=== PATIENT | female | born 1960 | race American Indian/Alaskan Native ===

== ENCOUNTER → 2017-03-14 | Outpatient (CLI) | payer MEDICARE, OTHER ==
[~2017-03-14] MED LIST: GADOBUTROL 7.5 MMOL/7.5 ML VIAL ONE
== END | disposition home or self-care (01) ==
LOC: CFH 14:21
PROVIDERS: ATTEND Radiology Radiation Oncology
DX: D33.3 Benign neoplasm of cranial nerves (principal)
CPT/HCPCS: 70553; A9585

== ENCOUNTER → 2017-03-21 | Outpatient (CLI) | payer MEDICARE, OTHER | END | disposition home or self-care (01) | LOC: ROC 10:36 | PROVIDERS: ATTEND Radiology Radiation Oncology | DX: D33.3 Benign neoplasm of cranial nerves (principal); H91.90 Unspecified hearing loss, unspecified ear; H93.19 Tinnitus, unspecified ear | CPT/HCPCS: G0463 ==

== ENCOUNTER → 2018-03-21 | Outpatient (CLI) | payer MEDICARE, OTHER ==
[~2018-03-21] MED LIST changes: +GADOBUTROL 7.5 MMOL/7.5 ML PFS ONE; -GADOBUTROL 7.5 MMOL/7.5 ML VIAL ONE
== END | disposition home or self-care (01) ==
LOC: CFH 09:52
PROVIDERS: ATTEND Radiology Radiation Oncology
DX: D33.3 Benign neoplasm of cranial nerves (principal)
CPT/HCPCS: 70553; A9585

== ENCOUNTER → 2018-03-25 | Outpatient (CLI) | payer MEDICARE, OTHER | END | disposition home or self-care (01) | LOC: ROC 07:39 | PROVIDERS: ATTEND Radiology Radiation Oncology | DX: D33.3 Benign neoplasm of cranial nerves (principal) | CPT/HCPCS: G0463 ==

== ENCOUNTER → 2019-09-22 | Outpatient (CLI) | payer MEDICARE, OTHER ==
[~2019-09-22] MED LIST changes: -GADOBUTROL 7.5 MMOL/7.5 ML PFS ONE; +GADOTERATE 7.5 MMOL/15 ML SYR ONE
== END | disposition home or self-care (01) ==
LOC: CFH 12:21
PROVIDERS: ATTEND Radiology Radiation Oncology
DX: D33.3 Benign neoplasm of cranial nerves (principal); D36.11 Benign neoplasm of peripheral nerves and autonomic nervous system of face, head, and neck
CPT/HCPCS: 70553; A9575